=== PATIENT | female | born 1945 | race Caucasian/White ===

== ENCOUNTER 2021-07-11 12:29 | Emergency (ER) | payer MEDICARE, OTHER ==
[2021-07-11] MEDS ORDERED: Ondansetron 4 MG/2 ML SDV IVPUSH ONE (12:51)
[2021-07-11] MEDS ORDERED: Sodium Chloride 0.9% 1,000 ML IV ONE (12:52)
--- NOTE | 2021-07-11 13:24 | EDM.PDOC ---
ED HPI GENERAL MEDICAL PROBLEM - General Chief Complaint: General Stated Complaint: NAUSEA Time Seen by Provider: 07/11/21 13:04 Source of Information: Reports: Patient History Limitations: Reports: No Limitations - History of Present Illness INITIAL COMMENTS - FREE TEXT/NARRATIVE: Patient presents with nausea, dizziness, blurry vision, hypertension. This started 6 hours ago at 0700 when she got up this morning. She says the dizziness isn't better or worse when lying, sitting, or standing but is a spinning feeling. She has had this a couple times in last few weeks, typically in evening then resolved by next morning. Denies any pain in chest, arms, shoulders, abdomen. - Related Data Allergies Allergy/AdvReac Type Severity Reaction Status Date / Time Sulfa (Sulfonamide Allergy Vaginitis Verified 07/11/21 12:30 Antibiotics) Home Meds: Home Meds amLODIPine Besylate/Benazepril [Amlodipine-Benazepril 10-20 MG] 10 - 20 mg PO DAILY 06/26/14 [History] Aspirin [Children's Aspirin] 81 mg PO DAILY 01/03/15 [History] Multivitamin [Chewable Multi Vitamin] 1 tab PO DAILY 01/03/15 [History] Pantoprazole [ProTONIX] 40 mg PO DAILY 01/04/15 [History] Ibuprofen 2 - 3 tab PO Q6H PRN 04/22/18 [History] Sertraline [Zoloft] 100 mg PO DAILY 04/22/18 [History] buPROPion [buPROPion XL] 150 mg PO DAILY 04/22/18 [History] Past Medical History HEENT History: Reports: Impaired Vision Cardiovascular History: Reports: Hypertension Musculoskeletal History: Reports: Other (See Below) Other Musculoskeletal History: right hip pain/bursitis Psychiatric History: Reports: Anxiety Social & Family History - Tobacco Use Tobacco Use Status *Q: Former Tobacco User Used Tobacco, but Quit: Yes Month/Year Tobacco Last Used: 1981 - Caffeine Use Caffeine Use: Reports: Coffee - Recreational Drug Use Recreational Drug Use: No - Living Situation & Occupation Living situation: Reports: , with Family ED ROS GENERAL - Review of Systems Review Of Systems: See Below Constitutional: Denies: Fever, Chills, Malaise HEENT: Denies: Ear Pain, Throat Pain, Vision Change Respiratory: Denies: Shortness of Breath, Cough Cardiovascular: Denies: Chest Pain, Syncope GI/Abdominal: Reports: Diarrhea (chronic), Nausea. Denies: Abdominal Pain, Vomiting : Denies: Dysuria, Flank Pain Musculoskeletal: Denies: Neck Pain, Shoulder Pain, Arm Pain, Back Pain, Hand Pain Skin: Denies: Cyanosis, Jaundice, Mottled, Pallor, Diaphoresis Neurological: Reports: Dizziness (sometimes it makes her feel off balance but hasn't caused her to fall). Denies: Confusion, Headache, Seizure, Syncope, Trouble Speaking, Difficulty Walking Psychiatric: Denies: Agitation, Anxiety, Confusion Hematologic/Lymphatic: Reports: Anemia (was 7.6 a couple months ago) ED EXAM, GENERAL - Physical Exam Exam: See Below Exam Limited By: No Limitations General Appearance: Alert, WD/WN, No Apparent Distress Eye Exam: Bilateral Eye: EOMI, Normal Inspection, PERRL Ears: Normal External Exam, Hearing Grossly Normal Nose: Normal Inspection, No Blood Throat/Mouth: Normal Inspection, Normal Lips, Normal Voice, No Airway Compromise Head: Atraumatic, Normocephalic Neck: Normal Inspection, Full Range of Motion Respiratory/Chest: No Respiratory Distress, Lungs Clear, Normal Breath Sounds, No Accessory Muscle Use Cardiovascular: Regular Rate, Rhythm, No Murmur GI/Abdominal: Normal Bowel Sounds, Soft, Non-Tender, No Organomegaly, No Distention Back Exam: Normal Inspection, Full Range of Motion. No: CVA Tenderness (L), CVA Tenderness (R) Extremities: Normal Inspection, Normal Range of Motion, No Pedal Edema Neurological: Alert, Oriented, Normal Cognition, No Motor/Sensory Deficits Psychiatric: Normal Affect, Normal Mood Skin Exam: Warm, Dry, Intact, Normal Color, No Rash Course - Vital Signs Last Recorded V/S: Last Vital Signs Temp 97.7 F 07/11/21 12:30 Pulse 75 07/11/21 13:47 Resp 20 07/11/21 13:47 BP 149/79 H 07/11/21 13:47 Pulse Ox 95 07/11/21 13:47 - Orders/Labs/Meds Orders: Active Orders 24 hr Category Date Time Status PT Evaluation and Treatment [CONS] Routine Cons 07/11/21 14:28 Ordered Isolation [COMM] Routine Oth 07/11/21 13:35 Ordered EKG 12 Lead [EK] Stat Ther 07/11/21 12:41 Ordered EKG 12 Lead [EK] Stat Ther 07/11/21 13:11 Ordered Labs: Laboratory Tests 07/11/21 07/11/21 07/11/21 Range/Units 12:45 12:45 12:50 WBC 7.79 (5.00-10.00) 10^3/uL RBC 4.06 (3.80-5.50) 10^6/uL Hgb 13.0 (12.0-16.0) g/dL Hct 39.6 (37.0-47.0) % MCV 97.5 H (82.0-92.0) fL MCH 32.0 H (27.0-31.0) pg MCHC 32.8 (32.0-36.0) g/dL RDW 12.9 (11.5-14.5) % Plt Count 274 (150-400) 10^3/uL MPV 9.3 (7.4-10.4) fL Immature Gran % (Auto) 0.1 (0.0-5.0) % Neut % (Auto) 64.9 (50.0-70.0) % Lymph % (Auto) 25.8 (20.0-40.0) % [place] % (Auto) 6.4 (2.0-8.0) % Eos % (Auto) 2.2 (1.0-3.0) % Baso % (Auto) 0.6 (0.0-1.0) % Neut # (Auto) 5.05 (2.50-7.00) 10^3/uL Lymph # (Auto) 2.01 (1.00-4.00) 10^3/uL [place] # (Auto) 0.50 (0.10-0.80) 10^3/uL Eos # (Auto) 0.17 (0.10-0.30) 10^3/uL Baso # (Auto) 0.05 (0.00-0.10) 10^3/uL Immature Gran # (Auto) 0.01 (0.00-0.50) 10^3/uL Sodium (136-145) mmol/L Potassium (3.5-5.1) mmol/L Chloride (98-107) mmol/L Carbon Dioxide (21.0-32.0) mmol/L Anion Gap (5-15) mmol/L BUN (7-18) mg/dL Creatinine (0.51-1.17) mg/dL Est Cr Clr Drug Dosing mL/min Estimated GFR (MDRD) mL/min Glucose (70-140) mg/dL Calcium (8.7-10.3) mg/dL Total Bilirubin (0.2-1.0) mg/dL AST (15-37) U/L ALT (14-63) U/L Alkaline Phosphatase (46-116) U/L Troponin I High Sens 4.100 (0-51.000) pg/mL Total Protein (6.4-8.2) g/dL Albumin (3.40-5.00) g/dL Specimen Type Urincc Urine Color Yellow (YELLOW) Urine Appearance Slightly cloudy H (CLEAR) Urine pH 8.0 (5.0-9.0) Ur Specific [place] 1.020 (1.005-1.030) Urine Protein Negative (NEGATIVE) mg/dL Urine Glucose (UA) Negative (NEGATIVE) mg/dL Urine Ketones Negative (NEGATIVE) mg/dL Urine Occult Blood Trace-lysed H (NEGATIVE) Urine Nitrite Negative (NEGATIVE) Urine Bilirubin Negative (NEGATIVE) Urine Urobilinogen 0.2 (0.2-1.0) E.U./dL Ur Leukocyte Esterase Small H (NEGATIVE) Urine RBC Not seen (0-5) /HPF Urine WBC 0-5 (0-5) /HPF Ur Epithelial Cells Many H /LPF Urine Bacteria Few (NONE TO FEW) /HPF SARS CoV-2 RNA Rapid SULAIMAN (NEGATIVE) 07/11/21 07/11/21 Range/Units 12:50 13:30 WBC (5.00-10.00) 10^3/uL RBC (3.80-5.50) 10^6/uL Hgb (12.0-16.0) g/dL Hct (37.0-47.0) % MCV (82.0-92.0) fL MCH (27.0-31.0) pg MCHC (32.0-36.0) g/dL RDW (11.5-14.5) % Plt Count (150-400) 10^3/uL MPV (7.4-10.4) fL Immature Gran % (Auto) (0.0-5.0) % Neut % (Auto) (50.0-70.0) % Lymph % (Auto) (20.0-40.0) % [place] % (Auto) (2.0-8.0) % Eos % (Auto) (1.0-3.0) % Baso % (Auto) (0.0-1.0) % Neut # (Auto) (2.50-7.00) 10^3/uL Lymph # (Auto) (1.00-4.00) 10^3/uL [place] # (Auto) (0.10-0.80) 10^3/uL Eos # (Auto) (0.10-0.30) 10^3/uL Baso # (Auto) (0.00-0.10) 10^3/uL Immature Gran # (Auto) (0.00-0.50) 10^3/uL Sodium 144 (136-145) mmol/L Potassium 3.8 (3.5-5.1) mmol/L Chloride 104 (98-107) mmol/L Carbon Dioxide 23.9 (21.0-32.0) mmol/L Anion Gap 19.9 H (5-15) mmol/L BUN 14 (7-18) mg/dL Creatinine 0.72 (0.51-1.17) mg/dL Est Cr Clr Drug Dosing 54.13 mL/min Estimated GFR (MDRD) > 60 mL/min Glucose 127 (70-140) mg/dL Calcium 9.2 (8.7-10.3) mg/dL Total Bilirubin 0.5 (0.2-1.0) mg/dL AST 16 (15-37) U/L ALT 28 (14-63) U/L Alkaline Phosphatase 75 (46-116) U/L Troponin I High Sens (0-51.000) pg/mL Total Protein 7.8 (6.4-8.2) g/dL Albumin 4.19 (3.40-5.00) g/dL Specimen Type Urine Color (YELLOW) Urine Appearance (CLEAR) Urine pH (5.0-9.0) Ur Specific [place] (1.005-1.030) Urine Protein (NEGATIVE) mg/dL Urine Glucose (UA) (NEGATIVE) mg/dL Urine Ketones (NEGATIVE) mg/dL Urine Occult Blood (NEGATIVE) Urine Nitrite (NEGATIVE) Urine Bilirubin (NEGATIVE) Urine Urobilinogen (0.2-1.0) E.U./dL Ur Leukocyte Esterase (NEGATIVE) Urine RBC (0-5) /HPF Urine WBC (0-5) /HPF Ur Epithelial Cells /LPF Urine Bacteria (NONE TO FEW) /HPF SARS CoV-2 RNA Rapid SULAIMAN Negative (NEGATIVE) Meds: Medications Discontinued Medications Generic Name Dose Route Start Last Admin Trade Name Freq PRN Reason Stop Dose Admin Sodium Chloride 1,000 mls @ 999 mls/hr 07/11/21 12:52 07/11/21 12:57 Normal Saline IV 07/11/21 13:52 999 mls/hr ONETIME ONE Administration Ondansetron HCl 4 mg 07/11/21 12:51 07/11/21 12:57 Ondansetron 4 Mg/2 Ml Sdv IVPUSH 07/11/21 12:52 4 mg ONETIME ONE Administration - Re-Assessments/Exams Free Text/Narrative Re-Assessment/Exam: 07/11/21 14:[address] normal. Covid negative. [place] wasn't provocative lying back but was when sitting back up, in both directions, L>R. No nystagmus observed. Called to schedule PT appointment for tomorrow. Rx for Meclizine 25 mg #30, 1 po tid prn vertigo called to [facility]. Discussed findings and recommendations with patient and her son, including precautions like using her walker/cane for support to avoid falling until the vertigo is resolved. Discharged to home in stable condition. Departure - Departure Time of Disposition: 14:34 Disposition: Home, Self-Care 01 Condition: Good Clinical Impression: Vertigo Nausea & vomiting Qualifiers: Vomiting type: unspecified Vomiting Intractability: non-intractable Qualified Code(s): R11.2 - Nausea with vomiting, unspecified - Discharge Information Instructions: Vertigo, [id number], Benign Positional Vertigo Referrals: Luz Elena Posada SALES DEVELOPMENT REPRESENTATIVE [Primary Care Provider] - Forms: ED Department Discharge Additional Instructions: Drink 8 cups of water daily. Take the Meclizine as directed. Go to Physical Therapy at [facility] tomorrow (07/12/21) at 2:00 for treatment. If not completely resolved within a week, follow up with your PCP for further evaluation. If worsening, go to clinic or ER as needed. Sepsis Event Note (ED) - Evaluation Sepsis Screening Result: No Definite Risk - Focused Exam Vital Signs: Vital Signs Temp Pulse Resp BP Pulse Ox 07/11/21 13:47 75 20 149/79 H 95 07/11/21 13:25 146/73 H 07/11/21 13:00 79 18 142/78 H 93 L 07/11/21 12:35 79 149/89 H 95 07/11/21 12:30 97.7 F 81 20 166/83 H 94 L - My Orders Last 24 Hours: My Active Orders 07/11/21 12:41 EKG 12 Lead [EK] Stat 07/11/21 13:11 EKG 12 Lead [EK] Stat 07/11/21 13:35 Isolation [COMM] Routine 07/11/21 14:28 PT Evaluation and Treatment [CONS] Routine - Assessment/Plan Last 24 Hours: My Active Orders 07/11/21 12:41 EKG 12 Lead [EK] Stat 07/11/21 13:11 EKG 12 Lead [EK] Stat 07/11/21 13:35 Isolation [COMM] Routine 07/11/21 14:28 PT Evaluation and Treatment [CONS] Routine
[2021-07-11 13:29] LABS: ANION GAP 19.9 mmol/L (5-15); CHLORIDE,CL 104 mmol/L (98-107); SODIUM,NA 144 mmol/L (136-145)
[2021-07-11 13:47] VITALS: BP 149/79; PULSE 75
--- NOTE | 2021-07-11 14:05 | CT ---
[id number] CT/CT Head WO IV EXAM: CT Head WO IV CLINICAL DATA: NEUROLOGIC DEFICIT COMPARISON: No previous similar exam is available for comparison. FINDINGS: There is no mass or mass effect. There is no hemorrhage or hydrocephalus. There are no extra-axial fluid collections. There are no sites of abnormal attenuation. IMPRESSION: NO PLAIN CT EVIDENCE OF ACUTE INTRACRANIAL PROCESS. Humza Carrion MD 07/11/21 [id number] Thank you for allowing us to participate in the care of your patient.
== END 2021-07-11 14:50 | disposition home or self-care (01) ==
LOC: KA.ED 12:29
DX: R42 Dizziness and giddiness (principal); R11.2 Nausea with vomiting, unspecified; I10 Essential (primary) hypertension; Z88.2 Allergy status to sulfonamides; Z79.82 Long term (current) use of aspirin; Z87.891 Personal history of nicotine dependence; Z20.822 Contact with and (suspected) exposure to COVID-19; Z79.899 Other long term (current) drug therapy
CPT/HCPCS: 36415; 70450; 80053; 81001; 84484; 85025; 93005; 96374; 99284; 99284-25; J2405; J7030; U0002

== ENCOUNTER 2022-07-14 11:12 | Emergency (ER) | payer BC, MEDICARE, OTHER ==
[2022-07-14 13:29] VITALS: BP 162/78; PULSE 70
== END 2022-07-14 14:00 | disposition home or self-care (01) ==
LOC: KA.ED 11:12
DX: S52.572A Other intraarticular fracture of lower end of left radius, initial encounter for closed fracture (principal); I10 Essential (primary) hypertension; Z88.2 Allergy status to sulfonamides; Z79.82 Long term (current) use of aspirin; W18.30XA Fall on same level, unspecified, initial encounter
CPT/HCPCS: 29125; 73110-LT; 73200-LT; 99283; 99284

== ENCOUNTER 2023-09-13 16:31 | Emergency (ER) | payer MEDICARE ==
[2023-09-13 16:53] VITALS: BP 153/71; PULSE 78
== END 2023-09-13 17:56 | disposition home or self-care (01) ==
LOC: KA.ED 16:31
DX: S93.492A Sprain of other ligament of left ankle, initial encounter (principal); I10 Essential (primary) hypertension; Z79.82 Long term (current) use of aspirin; Z88.2 Allergy status to sulfonamides; Z79.899 Other long term (current) drug therapy; W10.8XXA Fall (on) (from) other stairs and steps, initial encounter; Y92.009 Unspecified place in unspecified non-institutional (private) residence as the place of occurrence of the external cause
CPT/HCPCS: 73590-LT; 73600-LT; 73600-RT; 73620-LT; 73620-RT; 99283; 99284

== ENCOUNTER 2024-02-13 18:29 | Emergency (ER) | payer MEDICARE ==
[2024-02-13] MEDS: Acetaminophen 500 MG Tab PO SCH (18:42)
[2024-02-13] MEDS: Acetaminophen 500 MG Tab ONE (18:42)
[2024-02-13 18:58] VITALS: BP 102/52; PULSE 80
== END 2024-02-13 19:10 | disposition home or self-care (01) ==
LOC: KA.ED 18:29
DX: S01.01XA Laceration without foreign body of scalp, initial encounter (principal); I10 Essential (primary) hypertension; Z88.2 Allergy status to sulfonamides; Z79.82 Long term (current) use of aspirin; Z79.899 Other long term (current) drug therapy; W01.198A Fall on same level from slipping, tripping and stumbling with subsequent striking against other object, initial encounter; Y93.89 Activity, other specified
CPT/HCPCS: 12001; 99284; A9270-GY

== ENCOUNTER 2025-01-30 02:04 | Observation (INO) | payer MEDICARE ==
[2025-01-30] MEDS: Sodium Chloride 0.9% 10 ML Syringe FLUSH PRN (02:23)
[2025-01-30] MEDS: Sodium Chloride 0.9% 1,000 ML IV ONE (03:05)
[2025-01-30 03:08] LABS: BASOPHILS ABSOLUTE AUTO 0.06 10^3/uL (0.00-0.10); BASOPHILS PERCENT AUTO 0.5 % (0.0-1.0); EOSINOPHILS ABSOLUTE AUTO 0.41 10^3/uL (0.10-0.30); EOSINOPHILS PERCENT AUTO 3.5 % (1.0-3.0); HEMATOCRIT 37.2 % (37.0-47.0); HEMOGLOBIN 12.3 g/dL (12.0-16.0); IMMATURE GRAN ABSOLUTE AUTO 0.02 10^3/uL (0.00-0.04); IMMATURE GRAN PERCENT AUTO 0.2 % (0.0-0.4); LYMPHOCYTES ABSOLUTE AUTO 2.53 10^3/uL (1.00-4.00); LYMPHOCYTES PERCENT AUTO 21.6 % (20.0-40.0); MEAN CORPUSCULAR HEMOGLOBIN 31.5 pg (27.0-31.0); MEAN CORPUSCULAR HGB CONC 33.1 g/dL (32.0-36.0); MEAN CORPUSCULAR VOLUME 95.1 fL (82.0-92.0); MEAN PLATELET VOLUME 9.3 fL (7.4-10.4); MONOCYTES ABSOLUTE AUTO 0.69 10^3/uL (0.10-0.80); MONOCYTES PERCENT AUTO 5.9 % (2.0-8.0); NEUTROPHILS PERCENT AUTO 68.3 % (50.0-70.0); PLATELET COUNT,PLT 276 10^3/uL (150-400); RED BLOOD CELL COUNT 3.91 10^6/uL (3.80-5.50); RED CELL DISTRIBUTION WIDTH 13.4 % (11.5-14.5); WHITE BLOOD CELL COUNT,WBC 11.71 10^3/uL (5.00-10.00)
[2025-01-30 03:28] LABS: ALBUMIN 3.98 g/dL (3.40-5.00); ANION GAP 16.6 mmol/L (5-15); BILIRUBIN TOTAL 0.4 mg/dL (0.2-1.0); CALCIUM 8.9 mg/dL (8.7-10.3); CARBON DIOXIDE,CO2 26.4 mmol/L (21.0-32.0); CREATININE 0.82 mg/dL (0.51-1.17); EST CRCL DRUG DOSING (CG) 44.51 mL/min; PROTEIN TOTAL,TP 7.5 g/dL (6.4-8.2)
[2025-01-30] MEDS ORDERED: Potassium Chloride 20 MEQ Tab.ER ONE (03:45)
[2025-01-30] MEDS: Potassium Chloride 20 MEQ Tab.ER PO ONE ×2 (03:47→11:40)
[2025-01-30] MEDS ORDERED: Naloxone 0.4 MG/ML SDV IVPUSH PRN (05:00)
[2025-01-30] MEDS: HYDROmorphone 1 MG/ML Syringe IM ONE (05:18)
[2025-01-30] MEDS ORDERED: Ondansetron 4 MG/2 ML SDV IV PRN (05:23)
[2025-01-30] MEDS: HYDROmorphone 2 MG/ML Syringe IVPUSH ONE (05:25)
[2025-01-30] MEDS: HYDROmorphone 1 MG/ML Syringe IVPUSH ONE (05:27)
[2025-01-30] MEDS: Pantoprazole 40 MG Tab.CR PO SCH (06:44)
[2025-01-30] MEDS: Calcium Citrate/Vitamin D3 315 MG-250 Unit Tab PO SCH (08:45)
[2025-01-30] MEDS: Sertraline 50 MG Tab PO SCH (08:45)
[2025-01-30] MEDS: Rosuvastatin 10 MG Tab PO SCH (08:45)
[2025-01-30] MEDS: amLODIPine 5 MG Tab PO SCH (08:45)
[2025-01-30] MEDS: Aspirin 81 MG Tab.EC PO SCH (08:45)
[2025-01-30] MEDS: Multivitamins with Minerals/Iron/Folic Acid/Lycopene Tab PO SCH (08:45)
[2025-01-30] MEDS: Lisinopril 20 MG Tab PO SCH (08:45)
[2025-01-30] MEDS: buPROPion 150 MG Tab.ER PO SCH (08:45)
[2025-01-30] MEDS: Acetaminophen/oxyCODONE 325-5 MG Tab PO PRN (08:46)
[2025-01-30] MEDS ORDERED: Non-Formulary Medication 1 Each (Calcium Carbonate/Vitamin D3 [Calcium 600-Vit D3 400 Tabl PO SCH (09:00)
[2025-01-30] MEDS ORDERED: Non-Formulary Medication 1 Each (Alendronate Sodium [Alendronate Sodium] 70 MG Tablet) PO SCH (09:00)
[2025-01-30] MEDS ORDERED: Aspirin 81 MG Tab.Chew PO SCH (09:00)
[2025-01-30] MEDS: Ketorolac 30 MG/ML SDV IVPUSH PRN (11:40)
[2025-01-30] MEDS: Acetaminophen 650 MG Tab.ER PO SCH (14:16)
[2025-01-30] MEDS: Acetaminophen 500 MG Tab PO SCH (14:31)
[2025-01-30] MEDS: oxyCODONE 5 MG Tab PO PRN (14:37)
[2025-01-31 07:47] LABS: BASOPHILS ABSOLUTE AUTO 0.03 10^3/uL (0.00-0.10); BASOPHILS PERCENT AUTO 0.2 % (0.0-1.0); EOSINOPHILS ABSOLUTE AUTO 0.28 10^3/uL (0.10-0.30); EOSINOPHILS PERCENT AUTO 2.1 % (1.0-3.0); HEMATOCRIT 32.2 % (37.0-47.0); HEMOGLOBIN 10.9 g/dL (12.0-16.0); IMMATURE GRAN ABSOLUTE AUTO 0.02 10^3/uL (0.00-0.04); IMMATURE GRAN PERCENT AUTO 0.2 % (0.0-0.4); LYMPHOCYTES ABSOLUTE AUTO 1.26 10^3/uL (1.00-4.00); LYMPHOCYTES PERCENT AUTO 9.5 % (20.0-40.0); MEAN CORPUSCULAR HEMOGLOBIN 31.4 pg (27.0-31.0); MEAN CORPUSCULAR HGB CONC 33.9 g/dL (32.0-36.0); MEAN CORPUSCULAR VOLUME 92.8 fL (82.0-92.0); MEAN PLATELET VOLUME 9.8 fL (7.4-10.4); MONOCYTES ABSOLUTE AUTO 0.76 10^3/uL (0.10-0.80); MONOCYTES PERCENT AUTO 5.7 % (2.0-8.0); NEUTROPHILS PERCENT AUTO 82.3 % (50.0-70.0); PLATELET COUNT,PLT 220 10^3/uL (150-400); RED BLOOD CELL COUNT 3.47 10^6/uL (3.80-5.50); RED CELL DISTRIBUTION WIDTH 13.4 % (11.5-14.5); WHITE BLOOD CELL COUNT,WBC 13.25 10^3/uL (5.00-10.00)
[2025-01-31 08:06] LABS: ANION GAP 11.3 mmol/L (5-15); CALCIUM 10.3 mg/dL (8.7-10.3); CARBON DIOXIDE,CO2 28.7 mmol/L (21.0-32.0); CREATININE 0.67 mg/dL (0.51-1.17); EST CRCL DRUG DOSING (CG) 54.47 mL/min
[2025-01-31 16:33] VITALS: BP 159/74; PULSE 74
== END 2025-01-31 16:00 | disposition home or self-care (01) ==
LOC: KA.ED 02:04 → KA.MS 04:10
PROVIDERS: ADMIT Internal Medicine; ATTEND Internal Medicine
DX: S42.291A Other displaced fracture of upper end of right humerus, initial encounter for closed fracture (principal); I10 Essential (primary) hypertension; E78.00 Pure hypercholesterolemia, unspecified; J44.9 Chronic obstructive pulmonary disease, unspecified; K21.9 Gastro-esophageal reflux disease without esophagitis; Z87.891 Personal history of nicotine dependence; Z79.899 Other long term (current) drug therapy; Z88.2 Allergy status to sulfonamides; X58.XXXA Exposure to other specified factors, initial encounter
CPT/HCPCS: 36415; 73030; 80048; 80053; 80307; 83735; 85025; 96361; 96374; 96375; 96376; 99223; 99239; 99284; A9270; G0378; J1171; J1885; J7030; Q3014; 96360